=== PATIENT | female | born 1990 | race Hispanic/Latino ===

== ENCOUNTER 2018-01-06 08:30 | Inpatient (IN) | payer MEDICAID ==
[~2018-01-06] VITALS: Ht 157.5 cm; Wt 88.9 kg
[2018-01-06 09:05] LABS: APPEARANCE,URINE Clear (CLEAR); BILIRUBIN,URINE Negative (NEGATIVE); COLOR,URINE Yellow (YELLOW); GLUCOSE, URINE (UA) Negative (NEGATIVE); KETONES,URINE Negative (NEGATIVE); LEUKOCYTE ESTERASE ,URINE Large (NEGATIVE); NITRATE,URINE Negative (NEGATIVE); OCCULT BLOOD,URINE Moderate (NEGATIVE); PROTEIN,URINE Negative (NEGATIVE)
[2018-01-06 09:07] LABS: BACTERIA,URINE Rare /HPF (None Seen); SQUAMOUS EPITHELIAL CELL,UR Rare /LPF (0-2); WBC,URINE 0-1 /HPF (0-1)
[2018-01-06] MEDS ORDERED: LACTATED RINGERS 1000ML 1,000 ML IV PRN (09:25)
[2018-01-06] MEDS ORDERED: LACTATED RINGERS 1000ML 1,000 ML IV ONE ×2 (09:25→20:55)
[2018-01-06] MEDS ORDERED: OXYTOCIN-LR 20 UNITS/1000 ML 1,000 ML IV SCH (09:30)
[2018-01-06 09:51] LABS: HEMATOCRIT 29.6 % (36-48); MEAN CORPUSCULAR HGB CONC 33.4 g/dL (32.0-36.0); MEAN CORPUSCULAR VOLUME 77.9 fL (79-99); NUCLEATED RED BLOOD CELLS 0.1 % (0.0-0.19); PLATELET COUNT (AUTO) 203 K/uL (130-400); RED CELL DISTRIBUTION WIDTH 16.6 % (11.0-15.5); WHITE BLOOD COUNT (AUTO) 9.5 K/uL (4.8-10.8)
[2018-01-06] MEDS ORDERED: CEFAZOLIN SODIUM 1 GM VIAL IVP PRN (17:30)
[2018-01-06] MEDS ORDERED: LACTATED RINGERS 1000ML 1,000 ML IV SCH (17:30)
[2018-01-06] MEDS ORDERED: CEFAZOLIN SODIUM 1 GM VIAL ONE (17:37)
[2018-01-06] MEDS ORDERED: DURAMORPH PF1 MG/ML 10ML AMP IV ONE (17:58)
[2018-01-06] MEDS ORDERED: CEFAZOLIN SODIUM 1 GM VIAL IVP ONE (18:00)
[2018-01-06] MEDS ORDERED: EPHEDRINE-NS PF 50MG/5ML SYRINGE IV ONE (18:06)
[2018-01-06] MEDS ORDERED: ONDANSETRON HCL 4 MG/2 ML VIAL ONE (18:23)
[2018-01-06] MEDS ORDERED: OXYTOCIN 10 USP UNITS/ML ONE ×2 (18:23→20:55)
[2018-01-06] MEDS ORDERED: DEXAMETHASONE SOD PHOSPHATE 10MG/ML 1ML VIAL ONE (18:23)
[2018-01-06] MEDS ORDERED: GLYCOPYRROLATE 0.2 MG/ML 5 ML VIAL ONE (18:23)
[2018-01-06] MEDS ORDERED: ONDANSETRON HCL 4 MG/2 ML VIAL IVP PRN ×2 (20:00)
[2018-01-06] MEDS ORDERED: MORPHINE SULFATE 2 MG/ML 1ML SYG IVP PRN (20:00)
[2018-01-06] MEDS ORDERED: NALOXONE HCL 0.4 MG/1 ML ML IVP PRN ×2 (20:00)
[2018-01-06] MEDS ORDERED: EPHEDRINE SULFATE 50 MG/ML AMPULE IVP PRN (20:00)
[2018-01-06] MEDS ORDERED: HYDROCODONE/ACETAMINOPHEN 5/325 MG TAB PO PRN ×2 (20:00)
[2018-01-06] MEDS ORDERED: ONDANSETRON HCL 4 MG/2 ML 8 MG in SODIUM CHLORIDE 0.9% 50 ML IVP NR (20:00)
[2018-01-06] MEDS ORDERED: METOCLOPRAMIDE 10 MG/2 ML VIAL IVP PRN (20:00)
[2018-01-06] MEDS ORDERED: PROMETHAZINE HCL 25 MG/ML 1ML AMPULE IM PRN ×2 (20:00→21:15)
[2018-01-06] MEDS ORDERED: DiphenhydrAMINE HCL 50 MG/ML VIAL IVP PRN (20:00)
[2018-01-06] MEDS ORDERED: OXYTOCIN-LR 20 UNITS/1000 ML 1,000 ML IV PRN (21:10)
[2018-01-06] MEDS ORDERED: SODIUM CHLORIDE 0.9% 10 ML VIAL IVP PRN (21:15)
[2018-01-06] MEDS ORDERED: MEPERIDINE-PF 75 MG/ML SYG IM PRN (21:15)
[2018-01-06 21:45] VITALS: BP 130/79
[2018-01-06 23:29] VITALS: BP 120/78
[2018-01-07] MEDS: DEXTROSE 5 %-0.45 % NACL 1,000 ML IV PRN ×3 (02:45→11:02)
[2018-01-07 03:57] VITALS: BP 125/63
[2018-01-07 05:49] LABS: HEMATOCRIT 28.3 % (36-48); MEAN CORPUSCULAR HEMOGLOBIN 25.4 pg (27.0-33.0); MEAN CORPUSCULAR HGB CONC 32.9 g/dL (32.0-36.0); MEAN CORPUSCULAR VOLUME 77.3 fL (79-99); NUCLEATED RED BLOOD CELLS 0.1 % (0.0-0.19); PLATELET COUNT (AUTO) 222 K/uL (130-400); RED BLOOD CELL COUNT(AUTO) 3.67 MIL/uL (4.00-5.50); RED CELL DISTRIBUTION WIDTH 16.5 % (11.0-15.5); WHITE BLOOD COUNT (AUTO) 16.6 K/uL (4.8-10.8)
[2018-01-07 08:04] VITALS: BP 134/75
[2018-01-07 08:21] LABS: HEPATITIS Bs ANTIGEN SCREEN P Negative (Negative)
[2018-01-07] MEDS ORDERED: DIPHENHYDRAMINE HCL 25 MG CAPSULE PO PRN (09:00)
[2018-01-07] MEDS ORDERED: BISACODYL 10 MG SUPP.RECT RC PRN (09:00)
[2018-01-07] MEDS ORDERED: ACETAMINOPHEN-CODEINE 300/30MG TAB PO PRN (09:00)
[2018-01-07] MEDS ORDERED: DIPH,PERTUSS(ACELL),TET VAC/PF 0.5 ML VIAL IM SCH (09:00)
[2018-01-07] MEDS ORDERED: ACETAMINOPHEN EXTRA STRENGTH 500 MG TABLET PO PRN (09:00)
[2018-01-07] MEDS ORDERED: LANOLIN 30GM OINTMENT TP PRN (09:00)
[2018-01-07] MEDS ORDERED: HYDROCODONE/ACETAMINOPHEN 5/325 MG TAB PO PRN (09:00)
[2018-01-07] MEDS: DOCUSATE SODIUM 100 MG CAP PO SCH ×2 (10:14→22:10)
[2018-01-07] MEDS: SIMETHICONE 80 MG TAB.CHEW PO PRN ×4 (10:14→22:09)
[2018-01-07] MEDS: IBUPROFEN 600 MG TABLET PO PRN ×2 (10:15→16:36)
[2018-01-07 11:51] VITALS: BP 121/74
[2018-01-07 15:32] VITALS: BP 124/78
[2018-01-07] MEDS: MEASLES/MUMPS/RUBELLA VACCINE, LIVE 0.5 ML/VIAL SQ SCH (18:19)
[2018-01-07 19:37] VITALS: BP 114/73
[2018-01-07 23:32] VITALS: BP 119/70
[2018-01-08] MEDS: IBUPROFEN 600 MG TABLET PO PRN ×2 (00:12→08:32)
[2018-01-08 03:20] VITALS: BP 119/55
[2018-01-08 07:58] VITALS: BP 140/82
[2018-01-08] MEDS: DOCUSATE SODIUM 100 MG CAP PO SCH (08:31)
[2018-01-08] MEDS: SIMETHICONE 80 MG TAB.CHEW PO PRN (08:32)
[2018-01-08] MEDS: MEASLES/MUMPS/RUBELLA VACCINE, LIVE 0.5 ML/VIAL SQ SCH (08:36)
[2018-01-08 11:25] VITALS: BP 137/80
== END 2018-01-08 12:05 | disposition home or self-care (01) | DRG 540 ==
LOC: LDH 08:30 → OBSVTOIN 08:30 → LDH 08:31 → WSH 21:50
PROVIDERS: ADMIT Obstetrics & Gynecology; ATTEND Obstetrics & Gynecology
PROC: 10D00Z1 Extraction of Products of Conception, Low, Open Approach (ICD-10-PCS; principal; 2018-01-06 18:18)
PROC: 3E0234Z Introduction of Serum, Toxoid and Vaccine into Muscle, Percutaneous Approach (ICD-10-PCS; 2018-01-08)
DX: O66.41 Failed attempted vaginal birth after previous cesarean delivery (principal); O34.211 Maternal care for low transverse scar from previous cesarean delivery; O62.2 Other uterine inertia; Z37.0 Single live birth; Z3A.38 38 weeks gestation of pregnancy; Z23 Encounter for immunization
CPT/HCPCS: 36415; 59510; 81001; 85027; 86592; 86850; 86900; 86901; 87340; 90707; A4344; A4450; A4606; J0690; J1100; J1200; J2274; J2405; J2550; J2590; J3490; J7120

== ENCOUNTER 2024-11-15 08:03 | Emergency (ER) | payer BC, MEDICAID ==
[~2024-11-15] VITALS: Ht 160 cm; Wt 74.8 kg
[~2024-11-15 08:03] MED LIST: GLYB2.5T5 PO
[2024-11-15 08:43] LABS: BASOPHILS # (AUTO) 0.02 K/uL (0.00-0.20); BASOPHILS % (AUTO) 0.2 % (0.0-5.0); EOSINOPHILS # (AUTO) 0.07 K/uL (0.00-0.70); EOSINOPHILS % (AUTO) 0.8 % (0.0-8.0); IMMATURE GRANULOCYTE ABSOLUTE 0.03 K/uL (0-1); LYMPHOCYTES # (AUTO) 2.6 K/uL (1.0-4.8); LYMPHOCYTES % (AUTO) 29.1 % (21.0-51.0); MEAN CORPUSCULAR HEMOGLOBIN 22.5 pg (27.0-33.0); MEAN CORPUSCULAR HGB CONC 30.6 g/dL (32.0-36.0); MEAN CORPUSCULAR VOLUME 73.6 fL (79-99); MONOCYTES # (AUTO) 0.4 K/uL (0.1-1.0); MONOCYTES % (AUTO) 4.8 % (3.0-13.0); NEUTROPHILS # (AUTO) 5.8 K/uL (1.8-7.7); NEUTROPHILS % (AUTO) 64.8 % (40.0-77.0); PLATELET COUNT (AUTO) 297 K/uL (130-400); RED BLOOD CELL COUNT(AUTO) 4.62 MIL/uL (4.00-5.50); RED CELL DISTRIBUTION WIDTH 16.6 % (11.0-15.5); WHITE BLOOD COUNT (AUTO) 8.9 K/uL (4.8-10.8)
[2024-11-15 08:45] LABS: APPEARANCE,URINE CLEAR (CLEAR); BILIRUBIN,URINE NEGATIVE (NEGATIVE); COLOR,URINE COLORLESS (YELLOW); GLUCOSE, URINE (UA) NEGATIVE (NEGATIVE); KETONES,URINE NEGATIVE (NEGATIVE); LEUKOCYTE ESTERASE ,URINE NEGATIVE Leu/uL (NEGATIVE); NITRATE,URINE NEGATIVE (NEGATIVE); OCCULT BLOOD,URINE NEGATIVE (NEGATIVE); PROTEIN,URINE NEGATIVE (NEGATIVE); UROBILINOGEN,URINE 0.2 mg/dL (0.2-1.0)
[2024-11-15 08:47] LABS: ADD UA MICROSCOPIC NO; HCG,QUALITATIVE URINE NEGATIVE (NEGATIVE)
[2024-11-15] MEDS: ketOROlac 15MG/ML VIAL (15MG/ML) IV ONE (08:49)
[2024-11-15] MEDS: 0.9%NACL 1000ML 1,000 ML IV ONE (08:50)
[2024-11-15 08:58] LABS: ALBUMIN 3.6 g/dL (3.5-5.0); BILIRUBIN,DIRECT 0.1 mg/dL (0.0-0.3); BILIRUBIN,TOTAL 0.5 mg/dL (0.2-1.0); CREATININE 0.8 mg/dL (0.5-1.0); POTASSIUM 4.3 mmol/L (3.5-5.1); TOTAL PROTEIN, SERUM 7.1 g/dL (6.0-8.3)
--- NOTE | 2024-11-15 09:21 | HMCIMG ---
CHEST 1VW HISTORY: Shortness of breath COMPARISON: None FINDINGS: A frontal projection of the chest was obtained. No acute pulmonary infiltrates is seen. The heart is normal in size. Prominent interstitial markings are seen. No evidence of aortic calcification is seen. IMPRESSION: 1. No acute pulmonary infiltrate is seen.
[2024-11-15] MEDS ORDERED: NAPR-1196 PO (09:22)
--- NOTE | 2024-11-15 09:22 | ERN ---
ED Note History of Present Illness Stated Complaint: PAIN TO RT MID BACK Chief Complaint: Back Pain-No Injury Time Seen by MD: 08:15 Dictation: 33-year-old female presents to the ED for evaluation of right sided back pain onset 1 day ago. Patient denies any recent trauma or injury. As per patient pain worsens when she moves and she also mentioned that it hurts to catch a Allergies: Coded Allergies: No Known Drug Allergies (Unverified Allergy, Unknown, 01/06/18) Home Meds Active Scripts Naproxen (Naproxen) 250 Mg Tablet, 250 MG PO BID for 5 Days, #10 TAB Prov:EVIE RODRIGUEZ MD 11/15/24 Reported Medications Glyburide (Glyburide) 2.5 Mg Tablet, 2.5 MG PO BIDMEALS, TAB 11/30/19 Past Medical History Past Medical History: No Pertinent History Surgical History: None LMP: Oct 29, 2024 Review of System Dictation Constitutional: Negative for fever,chills, and weight loss Eyes: Negative for injury, pain,redness, and discharge ENT: Negative for injury,pain or swelling Cardiovascular: Negative for chest pain, palpitations, and edema Respiratory: Negative for shortness of breath, cough, and wheezing, Abdomen/GI: Negative for abdominal pain, nausea, vomiting, diarrhea, and constipation Back: Positive for back pain : Negative for injury, bleeding and discharge MS/Extremity: Negative for injury and deformity Skin: Negative for rash, and discoloration Neuro: Negative for headache, weakness, numbness, tingling, and seizure Psych: Negative for suicide ideation, homicidal ideation, and hallucinations Initial Vital Sign VS Vital Signs Date Time Temp Pulse Resp B/P (MAP) Pulse Ox O2 Delivery O2 Flow Rate FiO2 11/15/24 08:05 97.9 89 16 159/99 100 Room Air 0 11/15/24 09:43 21 Physical Exam Dictation General: awake, alert, NAD Head/Face: Normocephalic, atraumatic Eyes: PERRL, EOMI, vision at baseline ENT: oral cavity clear, TMs clear, no signs of infection Neck: Trachea midline, supple, no nuchal rigidity Cardiovascular: RRR, normal S1/S2, No MRGs, no JVD Respiratory: CTAB, no respiratory distress, No rales or wheezes Abdomen: Soft, non-tender, non-distended, normal bowel sounds, no guarding or rebound. Skin: Warm, dry, normal turgor, no rash MS/Extremity: Pulses equal, no cyanosis, neurovascular intact, FROM Neuro: COAx4, GCS 15, strength 5/5, CN 2-12 intact, normal cerebellar exam, normal gait, Psych: Normal behavior, mood, and affect normal Results (Laboratory/Radiology) Laboratory/Radiology Laboratory Tests Test 11/15/24 08:25 11/15/24 08:35 Urine Color COLORLESS (YELLOW) Urine Appearance CLEAR (CLEAR) Urine pH 6.0 (5.0-8.0) Urine Specific [place] 1.010 (1.001-1.031) Urine Protein NEGATIVE mg/dL (NEGATIVE) Urine Glucose (UA) NEGATIVE mg/dL (NEGATIVE) Urine Ketones NEGATIVE mg/dL (NEGATIVE) Urine Occult Blood NEGATIVE (NEGATIVE) Urine Nitrate NEGATIVE (NEGATIVE) Urine Bilirubin NEGATIVE mg/dL (NEGATIVE) Urine Urobilinogen 0.2 mg/dL (0.2-1.0) Urine Leukocyte Esterase NEGATIVE [place]/uL Urine HCG, Qualitative NEGATIVE (NEGATIVE) White Blood Count 8.9 K/uL (4.8-10.8) Red Blood Count 4.62 MIL/uL (4.00-5.50) Hemoglobin 10.4 g/dL (12.0-16.0) L Hematocrit 34.0 % (36-48) L Mean Corpuscular Volume 73.6 fL (79-99) L Mean Corpuscular Hemoglobin 22.5 pg (27.0-33.0) L Mean Corpuscular Hemoglobin Concent 30.6 g/dL (32.0-36.0) L Red Cell Distribution Width 16.6 % (11.0-15.5) H Platelet Count 297 K/uL (130-400) Mean Platelet Volume 11.7 fL (7.5-10.5) H Immature Granulocyte % (Auto) 0.3 % (0-1) Neutrophils (%) (Auto) 64.8 % (40.0-77.0) Lymphocytes (%) (Auto) 29.1 % (21.0-51.0) Monocytes (%) (Auto) 4.8 % (3.0-13.0) Eosinophils (%) (Auto) 0.8 % (0.0-8.0) Basophils (%) (Auto) 0.2 % (0.0-5.0) Neutrophils # (Auto) 5.8 K/uL (1.8-7.7) Lymphocytes # (Auto) 2.6 K/uL (1.0-4.8) Monocytes # (Auto) 0.4 K/uL (0.1-1.0) Eosinophils # (Auto) 0.07 K/uL (0.00-0.70) Basophils # (Auto) 0.02 K/uL (0.00-0.20) Absolute Immature Granulocyte (auto 0.03 K/uL (0-1) Nucleated Red Blood Cells 0.0 % (0.0-0.19) Red Blood Cell Morphology See comments Sodium Level 140 mmol/L (136-145) Potassium Level 4.3 mmol/L (3.5-5.1) Chloride Level 103 mmol/L (101-111) Carbon Dioxide Level 28 mmol/L (21-32) Blood Urea Nitrogen 14 mg/dL (7-18) Creatinine 0.8 mg/dL (0.5-1.0) Glomerular Filtration Rate Calc 98 mL/min (>90) Random Glucose 109 mg/dL (70-105) H Total Calcium 8.9 mg/dL (8.5-10.1) Total Bilirubin 0.5 mg/dL (0.2-1.0) Direct Bilirubin 0.1 mg/dL (0.0-0.3) Aspartate Amino Transf (AST/SGOT) 13 U/L (10-37) Alanine Aminotransferase (ALT/SGPT) 17 U/L (12-78) Alkaline Phosphatase 71 U/L (50-136) Total Creatine Kinase 57 U/L (21-232) Total Protein 7.1 g/dL (6.0-8.3) Albumin 3.6 g/dL (3.5-5.0) Labs Reviewed?: Yes ED Course ED Course Orders Procedure Category Date Status Time Cbc With Differential LAB 11/15/24 Complete 08:24 Basic Metabolic Panel LAB 11/15/24 Complete 08:24 Creatine Kinase, Total LAB 11/15/24 Complete 08:24 Hepatic Function Panel LAB 11/15/24 Complete 08:24 Urinalysis Profile LAB 11/15/24 Complete 08:24 ,Urine Test LAB 11/15/24 Complete 08:24 Chest 1vw RAD 11/15/24 Resulted 08:24 Ketorolac PHA 11/15/24 Complete Tromethamine 15mg/Ml 08:30 0.9%Nacl 1000ml (Ns PHA 11/15/24 Complete 1000ml) 08:30 Current Medications Medications (Trade) Dose Ordered Sig/Fantasma Route PRN Reason Start Time Stop Time Status Last Admin Dose Admin Ketorolac Tromethamine (toRADol) 15 mg ONCE ONCE IV 11/15/24 08:30 11/15/24 08:31 DC 11/15/24 08:49 Sodium Chloride 1,000 ml @ 0 mls/hr ONCE ONCE IV 11/15/24 08:30 11/15/24 08:31 DC 11/15/24 08:50 Vital Signs Date Time Temp Pulse Resp B/P (MAP) Pulse Ox O2 Delivery O2 Flow Rate FiO2 11/15/24 09:43 98.2 74 16 141/90 98 Room Air* 0 21 11/15/24 08:05 97.9 89 16 159/99 100 Room Air 0 Medical Decision Making MDM MDM: Differential diagnosis: Back pain, back strain, musculoskeletal pain Previous outside records reviewed: Old ER visits. Need for hospitalization: Patient does not meet criteria for hospitalization. Need for emergency major/minor surgery: No Patient's prior external medical records from other ER visits were reviewed by me as indicated. Prior testing and results from previous visits were reviewed. Prior tests were taken into account with medical decision making and resource utilization, independent historian/historians were used to obtain complete medical history. I independently interpreted the test that were performed, results were reviewed by me and considered findings on radiology if ordered. Medical management and examination interpretation discussions were had by me with other qualified healthcare professionals as indicated for the patient's care. DX & DISP Disposition: Discharge Departure Impression: Primary Impression: Back pain Condition: Stable Scripts Naproxen (Naproxen) 250 Mg Tablet 250 MG PO BID for 5 Days, #10 TAB Prov: EVIE RODRIGUEZ MD 11/15/24 Referrals: BO STEWARD MD (PCP) I have reviewed, & agreed with my scribe's, documentation. (Entered by Evi Ryan, acting as a scribe for Dr. Rodriguez) I personally scribed for EVIE RODRIGUEZ MD ([email or web address]) on 11/15/24 at 09:58. Electronically submitted by Evi Ryan ([email or web address]). EVIE RODRIGUEZ MD Nov 15, 2024 09:22
[2024-11-15 09:43] VITALS: BP 141/90; PULSE 74; RESP 16; TEMP 98.2; O2SAT 98
== END 2024-11-15 09:56 | disposition home or self-care (01) ==
LOC: EDH 08:03
DX: M54.50 Low back pain, unspecified (principal)
CPT/HCPCS: 99284; 96374; 71045; 96361; 82550; 80076; 80048; 85025; 81003; 81025; 36415; J7030; J1885